=== PATIENT | female | born 1990 | race Caucasian/White ===

== ENCOUNTER 2021-12-04 19:51 | Emergency (ER) | payer SELFPAY ==
[2021-12-04 19:53] VITALS: BP 171/97; PULSE 74; RESP 18; TEMP 36.6; O2SAT 98; BMI 35.4
--- NOTE | 2021-12-04 20:08 | EDS_ITS ---
HPI History of Present Illness Chief Complaint: Rash Informant: patient Onset/Context/Timing Onset: Days (4) Context: Gradual Onset Timing: Continuous Quality: itchy Location: LUE, followed by BLE Current Severity: Moderate Maximum Severity: Moderate Worsened by: nothing Relieved by: nothing but tried no meds Associated Symptoms Associated Symptoms: none Narrative Narrative: 31-year-old female states she pretty much just been working, except 1 day this past weekend when she went to a beach on [facility], and then on Tuesday which was 3-4 days ago, she started having this itchy rash in her left arm it has progressed up her arm and into both of her thighs. No pain. No fevers or chills or syncope, no systemic symptoms, no hand, foot, oral mucous membrane involvement. She takes Protonix but no other medications. Has not been in trees or brush or anything else that she can think of that she was exposed to but she has had this before and it responded to prednisone. [facility] Medical History (Updated 12/04/21 @ 20:[address] Shahbaz Bey MD) GERD (gastroesophageal reflux disease) Home Medications Protonix 12/04/21 [History Last Taken Unknown] prednisone 40 mg PO DAILY #10 tablet 12/04/21 [Rx Last Taken Unknown] Allergy/AdvReac Type Severity Reaction Status Date / Time No Known Allergies Allergy Verified 12/04/21 19:52 Social History Smoking Status: Never smoker ROS ROS ED Constitutional Constitutional ED: Denies chills or fever(s) ENT ENT ED: Denies ear pain, lip swelling, mouth pain, rhinorrhea or sore throat Cardiovascular Cardiovascular: Denies chest pain, palpitations or racing heartbeat Respiratory/Chest Respiratory/Chest: Denies cough or dyspnea Gastrointestinal Gastrointestinal: Denies nausea or vomiting Integumentary Reports rash; Denies abscess Neurologic Neurologic: Denies headache(s), paresthesias or weakness EXAM Physical Exam Const Vital Signs: 12/04/21 19:53 12/04/21 20:13 Temperature 97.8 F Temperature Source Temporal Pulse Rate 74 77 Respiratory Rate 18 14 Blood Pressure 171/97 H Blood Pressure Mean 121 Pulse Ox 98 100 Oxygen Delivery Method Room Air Positive well nourished and well developed General Appearance ED: well developed and NAD HEENT Reports moist mucous membranes HEENT Narrative: No oral mucous membrane lesions. Tongue is normal. Negative for trauma or tenderness Eyes PERRL and EOMs intact bilaterally Neck no lymphadenopathy and supple Neck Narrative: F ROM Chest Wall inspection of chest normal and palpation of chest normal Resp normal respiratory effort and clear to auscultation bilaterally Extremity Extremity Narrative: Rash left forearm and upper arm and both thighs. No tenderness. Intact distal pulses. No edema. General Extremety ED: Negative for edema or tenderness General Extremity: Negative for edema Neuro CN's II-XII intact bilaterally and gait normal Sensorium / Orientation: alert Motor Exam: strength 5/5 throughout Psych mental status grossly normal, thought process normal and cooperative Skin no wounds Skin Narrative: Fine urticarial rash on both medial anterior thighs and left upper extremity, it is coalescent on the left upper arm. No tenderness. Blanches. No petechia or bullae. MDM MDM MDM Narrative Medical decision making narrative: Consistent with urticaria from unknown cause. Last normal menstrual cycle was 2.5 weeks ago she has been regular and not that she knows of, we will place her on prednisone and advised close outpatient follow-up if it recurs or persist. She is comfortable with that plan. Discharge Plan Triage Chief Complaint: Rash ED Provider: Shahbaz Bey Dx/Rx/DC Orders Clinical Impression: Urticaria Instructions: ED Hives (Adult) Prescriptions: New prednisone 20 MG tablet 40 mg PO DAILY Qty: 10 RF: 0 No Action Protonix RF: 0 Primary Care Provider: Care Physician,No Primary Referrals: Stanislav Nolen MD [STAFF PHYSICIAN] - 1 Week if not improving NOT,DEFINED [NON-STAFF] - Disposition Disposition: Home, Self Care
[2021-12-04 20:13] VITALS: PULSE 77; RESP 14; O2SAT 100
[2021-12-04] MEDS: predniSONE 20 MG Tablet 40 MG PO (20:13)
== END 2021-12-04 20:30 | disposition home or self-care (01) ==
PROVIDERS: Emergency Provider Emergency Medicine; Visit Provider Emergency Medicine
DX: L50.9 Urticaria, unspecified (principal); K21.9 Gastro-esophageal reflux disease without esophagitis; Z79.899 Other long term (current) drug therapy
CPT/HCPCS: 99283

== ENCOUNTER 2022-03-18 20:33 | Emergency (ER) | payer OTHER, SELFPAY ==
[2022-03-18 20:34] VITALS: BP 172/99; PULSE 83; RESP 15; TEMP 36.9; O2SAT 100; BMI 37.3
[2022-03-18 20:36] VITALS: BP 172/99; PULSE 83; RESP 15; TEMP 36.9; O2SAT 100
[2022-03-18 20:51] LABS: Bacteria 0 SEEN /hpf (None Seen); Mucous, Urine 0 SEEN /hpf (<or=2+)
[2022-03-18 20:53] LABS: Color, Urine Yellow (Yellow); Glucose, Dipstick Normal (Normal); Ketone-Dipstick Negative (Negative); Leukocyte Esterase-Dipstick 25 /ul (Negative); Nitrite-Dipstick Negative (Negative); Occult Blood-Urine 10 /ul (Negative); Protein-Dipstick Negative (Negative); Urine Bilirubin Dipstick Negative (Negative); Urine Clarity Clear (Clear); Urine Urobilinogen 4 mg/dl (Normal)
[2022-03-18 21:02] LABS: Red Blood Cells-Urine 0-5 SEEN /hpf (0-5); Squamous Epithelial Cells - UA 5-10 SEEN /hpf (5-10); White Blood Cells 0-5 SEEN /hpf (0-5)
[2022-03-18 21:03] LABS: Amorphous Sediment 1+ URATE
--- NOTE | 2022-03-18 21:17 | EX.ED.VIS.HA ---
HPI History of Present Illness Chief Complaint: Headache Informant: patient Narrative Narrative: G3, P2 8-week gestation by ultrasound followed by Dr. Mohan migraine headache for 2 days. Aura sensations photo phonophobia. Nausea is chronic. No vomiting or diarrhea. Reports back pain with urine frequency. No dysuria. Abdominal discomfort. Denies fevers. On vaccinated for COVID. 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 No one confirmed with COVID that she is aware of. Prior similar symptoms: No PFSH PFSH Medical History GERD (gastroesophageal reflux disease) Home Medications NK 03/18/22 [History Last Taken Unknown] Allergy/AdvReac Type Severity Reaction Status Date / Time No Known Allergies Allergy Verified 03/18/22 20:36 Social History Smoking Status: Never smoker ROS ROS ED Constitutional Constitutional ED: Denies chills, fever(s) or sweats Eyes Eyes: Denies change in vision ENT ENT ED: Denies dysphagia or sore throat Cardiovascular Cardiovascular: Denies chest pain, leg edema, palpitations or racing heartbeat Respiratory/Chest Respiratory/Chest: Denies cough, dyspnea or dyspnea on exertion Gastrointestinal Gastrointestinal: Reports abdominal pain and nausea; Denies diarrhea or vomiting Genitourinary Genitourinary ED: Reports urinary frequency; Denies dysuria or hematuria Musculoskeletal Musculoskeletal: Denies back pain, extremity pain or neck pain Integumentary Denies rash or wounds Neurologic Neurologic: Reports headache(s); Denies paresthesias or weakness EXAM Physical Exam Const Vital Signs: 03/18/22 20:34 03/18/22 20:36 03/18/22 22:05 Temperature 98.4 F 98.4 F Temperature Source Oral Oral Pulse Rate 83 83 79 Respiratory Rate 15 15 16 Blood Pressure 172/99 H 172/99 H 116/62 Blood Pressure Mean 123 123 80 Pulse Ox 100 100 99 Oxygen Delivery Method Room Air Room Air Room Air 03/18/22 22:33 Temperature Temperature Source Pulse Rate 78 Respiratory Rate 16 Blood Pressure 120/64 Blood Pressure Mean Pulse Ox 98 Oxygen Delivery Method Positive well nourished and well developed General Appearance ED: well developed and NAD HEENT Reports moist mucous membranes normocephalic and atraumatic Eyes PERRL, EOMs intact bilaterally and conjunctivae normal General Eye ED: Yes normal appearance of both eyes Neck no lymphadenopathy, supple and no meningeal signs General: Negative for tenderness Chest Wall Chest: Negative for tenderness Resp normal respiratory effort and normal air movement Effort and Inspection: symmetric chest movement; Negative for respiratory distress Cardio regular rate, regular rhythm and no murmurs Peripheral Pulses: pulses 2+ throughout GI normal to inspection, nondistended, normoactive bowel sounds and non-tender GI Narrative: Negative Mcduffie's or McBurney's tenderness. Palpation: Negative for guarding or rebound tenderness present Back/Spine no CVA tenderness and no thoracic nor lumbar tenderness Extremity normal to inspection General Extremety ED: Negative for edema or tenderness General Extremity: Negative for edema Neuro oriented x3, CN's II-XII intact bilaterally and no sensory deficits noted Sensorium / Orientation: awake and alert Skin no rashes or lesions noted and no wounds MDM MDM MDM Narrative Medical decision making narrative: Patient 8 weeks presenting with migraine symptoms. There is no meningismus or focal neurologic deficits. Treated migraine cocktail Reglan Benadryl and fluids with improvement. COVID testing negative. Nonsurgical abdomen with reported symptoms abdominal labs were obtained shows no significant findings. Urine had leukocytes and 5-10 squamous cells. Culture sent. She denies any GI symptoms. Would not treat at this time. She will use Tylenol as needed. She will follow-up as an outpatient. Lab Data Attestation: I reviewed the patient's lab results. Labs: Laboratory Results - last 24 hr 03/18/22 03/18/22 03/18/22 20:50 21:30 21:30 WBC 11.4 H RBC 4.03 L Hgb 12.4 Hct 36.8 L MCV 91.3 MCH 30.8 MCHC 33.7 RDW Std Deviation 39.1 RDW Coeff of Alla 11.6 Plt Count 279 MPV 11.1 Immature Gran % (Auto) 0.300 Neut % (Auto) 59.8 Lymph % (Auto) 29.1 [place] % (Auto) 8.2 Eos % (Auto) 2.2 Baso % (Auto) 0.4 Absolute Neuts (auto) 6.8 Absolute Lymphs (auto) 3.31 Nucleated RBC % 0 Sodium 139 Potassium 3.9 Chloride 106 Carbon Dioxide 25.0 Anion Gap 8 BUN 7 Creatinine 0.68 Estim Creat Clear Calc 99.16 Est GFR (MDRD) Af Amer 129 Est GFR (MDRD) Non-Af 107 BUN/Creatinine Ratio 10.3 Glucose 90 Calcium 9.2 Total Bilirubin 0.20 AST 12 L ALT 26 Alkaline Phosphatase 75 Total Protein 6.8 Albumin 3.3 Globulin 3.5 Albumin/Globulin Ratio 0.9 Lipase 99 Urine Color Yellow Urine Clarity Clear Urine pH 6.0 Ur Specific [place] 1.020 Urine Protein Negative Urine Glucose (UA) Normal Urine Ketones Negative Urine Occult Blood 10 H Urine Nitrite Negative Urine Bilirubin Negative Urine Urobilinogen 4 H Ur Leukocyte Esterase 25 H Urine RBC 0-5 SEEN Urine WBC 0-5 SEEN Ur Squamous Epith Cells 5-10 SEEN Amorphous Sediment 1+ URATE Urine Bacteria 0 SEEN Urine Mucus 0 SEEN Discharge Plan Triage Chief Complaint: Headache ED Provider: Manjeet Guaman Dx/Rx/DC Orders Clinical Impression: Migraine headache, First trimester Instructions: 1st Trimester, ED, Migraine (Classical) Prescriptions: No Action NK Primary Care Provider: Care Physician,No Primary Referrals: Care Physician,No Primary [Primary Care Provider] - Activity Restrictions/Additional Instructions: COVID-negative. Labs stable. Follow-up with Dr. Mohan. Disposition Disposition: Home, Self Care Discharge Date/Time: 03/18/22 22:45
[2022-03-18] MEDS: DiphenhydrAMINE 50 MG/ML Syringe 25 MG IV (21:27)
[2022-03-18] MEDS: 0.9% Normal Saline 1,000 ML 1000 ML IV (21:27)
[2022-03-18] MEDS: Metoclopramide 10 MG/2 ML Vial IV (21:27)
[2022-03-18 21:49] LABS: Absolute Lymphocyte Count 3.31 X10^3/uL (0.83-4.51); Absolute Neutrophil Count 6.8 X10^3/uL (2.0-7.7); Basophil# 0.04 X10^3/uL; Basophil% 0.4 % (0-1); Eosinophil# 0.25 X10^3/uL; Eosinophils% 2.2 % (0-5); Hematocrit 36.8 % (37-47); Hemoglobin 12.4 g/dL (12.0-15.0); Lymphocyte # 3.31 X10^3/ul (0.83-4.51); Lymphocyte % 29.1 % (19-41); Mean Corp Hgb Conc 33.7 g/dL (32-36); Mean Corpuscular Hgb 30.8 pg (27.0-32.0); Mean Corpuscular Volume 91.3 fL (81-99); Mean Platelet Vol. 11.1 fl (6.2-12.0); Monocyte# 0.93 X10^3/uL; Monocyte% 8.2 % (0-10); NRBC Flagged by Analyzer 0 % (0-5); Neutrophil # 6.83 X10^3/uL (2.7-7.7); Neutrophil % 59.8 % (47-70); Platelet Count 279 K/mm3 (150-450); RBC Distribution Width CV 11.6 % (11.6-14.6); RBC Distribution Width SD 39.1 fl (35.1-43.9); Red Blood Count 4.03 M/mm3 (4.2-5.4); White Blood Count 11.4 K/mm3 (4.4-11.0)
[2022-03-18 21:59] LABS: ALB/GLOB Ratio 0.9 RATIO (0.9-2.4); AST(SGOT) 12 U/L (15-37); Alanine Aminotransfer ALT/SGPT 26 U/L (13-56); Albumin, Serum 3.3 g/dL (3.2-5.0); Alkaline Phosphatase 75 U/L (45-117); Anion Gap 8 (5-15); BUN 7 mg/dL (7-18); BUN/Creat Ratio 10.3 RATIO (10-20); Calcium,Total 9.2 mg/dL (8.5-10.1); Chloride 106 mmol/L (98-107); Creatinine, Serum 0.68 mg/dL (0.55-1.02); EST Glomerular Filtration Rate 107 mL/min (>60); Est Glom Filt Rate - Afr Amer 129 mL/min (>60); Estimated Creatinine Clearance 99.16 ml/min; Globulin 3.5 g/dL (2.2-4.2); Glucose 90 mg/dL (74-106); Lipase 99 U/L (73-393); Potassium 3.9 mmol/L (3.5-5.1); Protein, Total 6.8 g/dL (6.4-8.2); Sodium Level 139 mmol/L (136-145)
[2022-03-18 22:05] VITALS: BP 116/62; PULSE 79; RESP 16; O2SAT 99
[2022-03-18 22:33] VITALS: BP 120/64; PULSE 78; RESP 16; O2SAT 98
== END 2022-03-18 22:45 | disposition home or self-care (01) ==
PROVIDERS: Emergency Provider Emergency Medicine; Visit Provider Emergency Medicine
DX: O99.351 Diseases of the nervous system complicating pregnancy, first trimester (principal); G43.909 Migraine, unspecified, not intractable, without status migrainosus; Z3A.08 8 weeks gestation of pregnancy
CPT/HCPCS: 80053; 81001; 83690; 85025; 87086; 87088; 87811; 96361; 96374; 96375; 99283; A4216

== ENCOUNTER 2022-08-24 17:00 | Outpatient (CLI) | payer OTHER, SELFPAY ==
[2022-08-24] VITALS (30 sets, daily range): BP systolic 133–180; BP diastolic 68–89; PULSE 86–103; RESP 16–18; TEMP 36.4; O2SAT 98–100; BMI 41.2
[2022-08-24] MEDS: Labetalol (Prefilled) 20 MG/4 ML IV (17:56)
[2022-08-24] MEDS: Magnesium Sulfate 4gm/100mL 4 GM/100 ML IV.SOLN. IV (17:58)
[2022-08-24 18:12] LABS: Hematocrit 34.2 % (37-47); Hemoglobin 11.2 g/dL (12.0-15.0); Mean Corp Hgb Conc 32.7 g/dL (32-36); Mean Corpuscular Hgb 28.9 pg (27.0-32.0); Mean Corpuscular Volume 88.1 fL (81-99); Mean Platelet Vol. 10.9 fl (6.2-12.0); Platelet Count 286 K/mm3 (150-450); RBC Distribution Width CV 12.7 % (11.6-14.6); Red Blood Count 3.88 M/mm3 (4.2-5.4); White Blood Count 14.2 K/mm3 (4.4-11.0)
[2022-08-24] MEDS: Magnesium Sulfate 4gm/100mL 2 GM/50 ML IV.SOLN. IV (18:19)
--- NOTE | 2022-08-24 18:24 | PCM.HP.OB ---
HPI - General General Date of Service: 08/24/22 HPI Narrative TYRA ARAYA, is a 31 F who presents with elevated BP. Maternal Data Information Final BRYN: 10/21/22 Gestational age: 31&5 PFSH PFS Medical History (Updated 08/24/22 @ 18:[address] Sage Mancera MD) Asthma Chronic hypertension affecting GERD (gastroesophageal reflux disease) Gestational diabetes Herpes simplex Allergy/AdvReac Type Severity Reaction Status Date / Time No Known Allergies Allergy Verified 08/24/22 17:50 Surgical History (Updated 08/24/22 @ 18:[address] Sage Mancera MD) H/O LEEP Social History Smoking Status: Never smoker NST FHR Rate Baby A Baseline: 135 Variability:: Moderate Accelerations:: 15 x 15 Decelerations:: None NST Reactive:: Yes Uterine Activity:: Quiet Vital Signs Vital Signs Vital Signs: 08/24/22 17:22 08/24/22 17:22 08/24/22 17:26 Temperature Temperature Source Pulse Rate 96 94 Respiratory Rate Respiratory Effort Respiratory Depth Respiratory Pattern Blood Pressure 180/89 H Blood Pressure Mean BP Systolic 180 BP Diastolic 89 Blood Pressure Source Blood Pressure Position Blood Pressure Location Pulse Ox Oxygen Delivery Method 08/24/22 17:26 08/24/22 17:31 08/24/22 17:31 Temperature Temperature Source Pulse Rate 96 Respiratory Rate Respiratory Effort Respiratory Depth Respiratory Pattern Blood Pressure Blood Pressure Mean BP Systolic BP Diastolic Blood Pressure Source Blood Pressure Position Blood Pressure Location Pulse Ox 99 100 Oxygen Delivery Method 08/24/22 17:33 08/24/22 17:33 08/24/22 17:36 Temperature Temperature Source Pulse Rate 98 99 Respiratory Rate Respiratory Effort Respiratory Depth Respiratory Pattern Blood Pressure 165/87 H Blood Pressure Mean BP Systolic 165 BP Diastolic 87 Blood Pressure Source Blood Pressure Position Blood Pressure Location Pulse Ox Oxygen Delivery Method 08/24/22 17:36 08/24/22 17:41 08/24/22 17:41 Temperature Temperature Source Pulse Rate 100 Respiratory Rate Respiratory Effort Respiratory Depth Respiratory Pattern Blood Pressure Blood Pressure Mean BP Systolic BP Diastolic Blood Pressure Source Blood Pressure Position Blood Pressure Location Pulse Ox 99 99 Oxygen Delivery Method 08/24/22 17:43 08/24/22 17:43 08/24/22 17:53 Temperature Temperature Source Pulse Rate 103 H Respiratory Rate Respiratory Effort Respiratory Depth Respiratory Pattern Blood Pressure 168/88 H 172/85 H Blood Pressure Mean BP Systolic 168 172 BP Diastolic 88 85 Blood Pressure Source Blood Pressure Position Blood Pressure Location Pulse Ox Oxygen Delivery Method 08/24/22 17:53 08/24/22 18:10 08/24/22 18:10 Temperature Temperature Source Pulse Rate 88 99 Respiratory Rate Respiratory Effort Respiratory Depth Respiratory Pattern Blood Pressure Blood Pressure Mean BP Systolic BP Diastolic Blood Pressure Source Blood Pressure Position Blood Pressure Location Pulse Ox 98 Oxygen Delivery Method 08/24/22 18:12 08/24/22 18:12 08/24/22 18:15 Temperature Temperature Source Pulse Rate 93 90 Respiratory Rate Respiratory Effort Respiratory Depth Respiratory Pattern Blood Pressure 144/85 H Blood Pressure Mean BP Systolic 144 BP Diastolic 85 Blood Pressure Source Blood Pressure Position Blood Pressure Location Pulse Ox Oxygen Delivery Method 08/24/22 18:15 08/24/22 18:20 08/24/22 18:20 Temperature Temperature Source Pulse Rate 92 Respiratory Rate Respiratory Effort Respiratory Depth Respiratory Pattern Blood Pressure Blood Pressure Mean BP Systolic BP Diastolic Blood Pressure Source Blood Pressure Position Blood Pressure Location Pulse Ox 98 98 Oxygen Delivery Method 08/24/22 18:00 Temperature 97.6 F L Temperature Source Temporal Pulse Rate 88 Respiratory Rate 18 Respiratory Effort Normal Respiratory Depth Normal Respiratory Pattern Normal Blood Pressure 172/85 H Blood Pressure Mean 114 BP Systolic BP Diastolic Blood Pressure Source Monitor Blood Pressure Position Sitting Blood Pressure Location Left Arm Pulse Ox 99 Oxygen Delivery Method Room Air Weight Weight: 232 lb 9.403 oz Body Mass Index (BMI) 41.2 Physical Exam Const alert and oriented x3 Chest inspection of chest normal Resp normal respiratory effort GI soft to palpation, non-tender and non-distended Inspection: gravid Labs Labs Labs: Hct 34.2 % (37-47) L Hgb 11.2 g/dL (12.0-15.0) L See [facility] records Assessment & Plan (1) Chronic hypertension affecting : (2) Gestational diabetes: (3) Severe pre-eclampsia, antepartum: COMMENT: @ 31&5 PLAN: Plan Severe BP's on admission. Improved after IV labetalol & 6g magnesium sulfate bolus. BP now 144/85. PreE labs pending. Plan for transfer to [facility] for further evaluation & treatment. Discussed patient with Dr. Mariah Perez ([facility]). FWB - reassuring EFM & s/p BMZ #1
[2022-08-24] MEDS: Betamethasone/Betamethasone 30 MG/5 ML Vial 12 MG IM (18:27)
[2022-08-24 18:33] LABS: AST(SGOT) 11 U/L (15-37); Alanine Aminotransfer ALT/SGPT 20 U/L (13-56); EST Glomerular Filtration Rate 153 mL/min (>60); Est Glom Filt Rate - Afr Amer 185 mL/min (>60); Estimated Creatinine Clearance 134.86 ml/min; Protein, Urine (Random) 18.4 mg/dL (<11.9); Protein:Creat Ratio 124 mg/g CRE (0-200); Uric Acid 3.6 mg/dL (2.6-6.0)
[2022-08-24] MEDS: Magnesium Sulfate 20 GM/500 ML BAG IV (18:37)
== END 2022-08-24 19:45 | disposition short-term general hospital (02) ==
LOC: WPOUT 17:07 → WP 17:08
PROVIDERS: Visit Provider Obstetrics & Gynecology
DX: O24.419 Gestational diabetes mellitus in pregnancy, unspecified control (principal); O14.10 Severe pre-eclampsia, unspecified trimester
CPT/HCPCS: 96374; 96361; 36415; 59025; 59050; 82565; 82570; 84156; 84450; 84460; 84550; 85027; 87811; 96372; 99221; G0378; J0702

== ENCOUNTER 2022-12-20 17:36 | Emergency (ER) | payer OTHER, MEDICAID, SELFPAY ==
[2022-12-20 17:38] VITALS: BP 166/103; PULSE 82; RESP 14; TEMP 36.1; O2SAT 97; BMI 37.6
--- NOTE | 2022-12-20 17:59 | EDS_ITS ---
HPI History of Present Illness Chief Complaint: Upper Extremity Injury Informant: patient Narrative Narrative: Patient hurt her dominant side right hand thumb today at work at about 10:30 in the morning. There is a machine at work that has 2 prongs. These 2 prongs ended up hitting her right thumb. The proximal one that is close to the metacarpal phalangeal junction is somewhat painful. She is able to move it but it is sore. Her last tetanus is up-to-date well less than 5 years. She is on no medicines and has no history of immune suppression. No other injury. No deformity. Bleeding stopped. [facility] Medical History Asthma Chronic hypertension affecting GERD (gastroesophageal reflux disease) Gestational diabetes Herpes simplex Home Medications amoxicillin 875 mg-potassium clavulanate 125 mg tablet 1 tab PO BID #14 tabs 12/20/22 [Rx Last Taken Unknown] Allergy/AdvReac Type Severity Reaction Status Date / Time No Known Allergies Allergy Verified 12/20/22 17:38 Surgical History H/O [facility] Social History Smoking Status: Current every day smoker tobacco type: cigarettes and e- cigarettes ROS ROS ED Constitutional Constitutional ED: Denies chills, fever(s), subjective or sweats Gastrointestinal Gastrointestinal: Denies nausea or vomiting Musculoskeletal Musculoskeletal: Reports other Details: See history of present illness. ; Denies myalgias Integumentary Reports other Details: Abrasions/punctures to lateral aspect of right thumb. Endocrine Endocrinology: Denies polydipsia or polyuria Hematologic/Lymphatic Hematologic/Lymphatic: Denies easy bleeding, easy bruising or lymphadenopathy EXAM Physical Exam Narrative Exam Narrative: Patient is awake alert no acute distress sitting comfortably in bed. HEENT shows no trauma Cardiorespiratory shows easy unlabored breathing. Extremities focused exam shows 2 pham on the lateral aspect of her right thumb. 1 is overlying the distal aspect of the proximal phalanx. This is either a small puncture or abrasion. Minimal bruising around it. The proximal spot is more in line or at least close to the metacarpal phalangeal joint. There is a little bit more bruising in this area. No redness. She actually has good range of motion of all the joints. No indication of swelling or limitation. There is no proximal lymphadenopathy. No lymphangitic streaking. I can move the joints both passively and they can be moved actively. No sign of infection at this time. But the injury just occurred earlier this morning. Skin: See exam above Neurologic: Patient awake alert appropriate no distal numbness tingling. Const Vital Signs: 12/20/22 17:38 Temperature 97 F L Temperature Source Temporal Pulse Rate 82 Respiratory Rate 14 Blood Pressure 166/103 H Blood Pressure Mean 124 Pulse Ox 97 Oxygen Delivery Method Room Air MDM MDM MDM Narrative Medical decision making narrative: Independent interpretation of the patient's three-view x-ray of the right hand shows no sign of bony injury. I see no air in the tissue or joint. Final reading by radiology is negative right hand x-rays. I cannot ascertain for sure that this metal prong did not enter the joint. I explained to the patient that we would not admit her to do surgery for the possibility of joint involvement. But I will get her on antibiotics because of the proximity. If she develops redness swelling fevers more pain with motion or any other concerns she may need to return and she may need a washout at some point. But it would not be appropriate to do that at this point. She understands the concerns and reasons for return. Discharge Plan Triage Chief Complaint: Upper Extremity Injury ED Provider: Benjie Lew Dx/Rx/DC Orders Clinical Impression: Puncture wound of hand, right Instructions: ED Puncture Wound (General) Prescriptions: New amoxicillin-pot clavulanate 875-125 mg tablet 1 tab PO BID Qty: 14 0RF Primary Care Provider: Care Physician,No Primary Referrals: Norberto Pascal MD [Med Staff - Active Staff] - 1-2 Days if not improving Care Physician,No Primary [Primary Care Provider] - Disposition Disposition: Home, Self Care
--- NOTE | 2022-12-20 18:00 | RAD_ITS ---
EXAM: XR RIGHT HAND COMPLETE, 3 OR MORE VIEWS CLINICAL INDICATION: Trauma- primarily thumb MCP TECHNIQUE: Frontal, lateral and oblique views of the right hand. COMPARISON: No relevant prior studies available. FINDINGS: BONES/JOINTS: Unremarkable. No acute fracture. No subluxation. Normal alignment. Preservation of the joint space. No sclerotic or destructive changes observed. SOFT TISSUES: Unremarkable. No soft tissue swelling or gas. No radiopaque foreign body. RAD/Hand Min 3 Views IMPRESSION: Negative right hand x-rays. Electronically Signed: Jesus Maguire MD at 18:19 EDT ,
[2022-12-20] MEDS: Amox/Clavulanate 875 MG Tablet PO (18:01)
[2022-12-20 19:15] VITALS: BP 108/64; PULSE 71; RESP 15; O2SAT 98
== END 2022-12-20 19:17 | disposition home or self-care (01) ==
PROVIDERS: Emergency Provider Emergency Medicine; Visit Provider Emergency Medicine
DX: S61.431A Puncture wound without foreign body of right hand, initial encounter (principal); F17.210 Nicotine dependence, cigarettes, uncomplicated; J45.909 Unspecified asthma, uncomplicated; F17.290 Nicotine dependence, other tobacco product, uncomplicated; W31.89XA Contact with other specified machinery, initial encounter; Y99.0 Civilian activity done for income or pay
CPT/HCPCS: 73130; 99283